=== PATIENT | female | born 1980 | race Caucasian/White ===

== ENCOUNTER 2016-11-01 15:08 | Emergency (ER) | payer OTHER ==
[2016-11-01 17:28] LABS: ABSOLUTE NEUTROPHIL COUNT 5.3 K/mm3 (1.8-7.7); BASO % 0.4 % (0.2-1.0); EOS # 0.3 (0.0-0.5); EOS % 3.6 % (0.9-2.9); HEMATOCRIT 40.7 % (37.0-47.0); HEMOGLOBIN 13.8 gm/l (12.0-16.0); IMM NEUT% 0.3 % (0-1); LYMPH # 1.4 (1.0-4.8); LYMPH % 18.1 % (15-45); MEAN CELL VOLUME 87.3 fl (81.0-99.0); MEAN CORPUSCULAR HEMOGLOBIN 29.6 pg (27.0-31.0); MEAN CORPUSCULAR HGB CONC 33.9 g/dl (33.0-37.0); MEAN PLATELET VOLUME 9.4 fl (7.4-10.4); MONO # 0.6 (0.0-0.8); MONO % 8.3 % (4-12); NEUT % 69.3 % (43-75); PLATELET COUNT 314 K/mm3 (130-400)
[2016-11-01] MEDS ORDERED: VANCOMYCIN HCL 1 G in SODIUM CHLORIDE 0.9% 230 ML IV ONE (17:30)
[2016-11-01] MEDS ORDERED: OXYCODONE HCL 5 MG TABLET ONE (18:08)
--- NOTE | 2016-11-15 12:23 | CONS ---
Stephania DA SILVA : 1980 [id number] EMERGENCY DEPARTMENT ORTHOPEDIC CONSULTATION DATE OF CONSULTATION: November 01, 2016 HISTORY OF PRESENT ILLNESS: This is a 35-year-old right-hand dominant female who came to the emergency department complaining of swelling of her right fifth finger that has been increasing and worsening for the past week. It has drained a couple of times with a little bit of purulence but is becoming more and more painful and the erythema is ascending up her arm. She does not have a known etiology for her injury at this site, but just notes that it is continuing to get worse and more painful. She was taken a couple of different antibiotics provided to her by her primary care doctor, but neither of these seems to have resolved the issue. She has not had previous injuries like this and has and has no other complaints at any of her other digits. PAST MEDICAL HISTORY: As reported in the emergency department notes. No relevant past medical history. PAST SURGICAL HISTORY: As reported in the emergency department notes. She has a previous section but no other relevant surgeries. SOCIAL HISTORY: She smokes a half a pack per day. REVIEW OF SYSTEMS: Is currently negative for constitutional, cardiovascular or respiratory complaints. She denies fevers, but just increasing pain at this finger. PHYSICAL EXAM: Patient is a well-developed, well-nourished female in no acute distress. She is awake and alert, and conversant throughout the encounter. HEENT: She is normocephalic and atraumatic. Extraocular movements are intact. NECK: Is soft and supple with full active range of motion. LUNGS: Are clear to auscultation bilaterally. HEART: Her heart has a regular rate and rhythm. EXTREMITIES: Her extremities are warm and well perfused with good sensation. FOCUSED MUSCULOSKELETAL EXAMINATION OF HER RIGHT HAND: Show significant erythema over the right small finger. There is 0/5 [place] signs. There is a clear evidence of a volar felon beginning at the margin of the nail and extending into the pad of the finger. The hand is form and well perfused with brisk capillary refill in all digits. There does appear to be some invasion of the subungual space as well. ASSESSMENT: This is a 35-year-old female with a right finger felon that has not been responsive to a course of antibiotics and nonoperative management. PLAN: The plan will be for an irrigation and debridement in the operating room. Risks, benefits and alternatives were discussed with the patient and she elected to proceed. Informed consent was obtained and documented in the chart. Job [id number] Cc: Odessa Blanco
--- NOTE | 2016-11-15 12:26 | PROCNOTE ---
Stephania DA SILVA : 1980 [id number] EMERGENCY DEPARTMENT ORTHOPEDIC PROCEDURE DATE OF PROCEDURE: November 01, 2016 PREPROCEDURAL DIAGNOSIS: Right small finger felon. POSTOPERATIVE DIAGNOSIS: Right small finger felon. PROCEDURE PERFORMED: Right finger irrigation and debridement. SURGEON: Malik Peña M.D. CHALK CUTTER: None. SPECIMENS: Material sent to the laboratory was cultures from the finger with some purulence on them. ESTIMATED BLOOD LOSS: 5 mL FLUID REPLACED: None. TOURNIQUET TIME: None. INDICATIONS: A 35-year-old female with a right small finger felon for additional details, see the consult note dictated by Dr. Peña. Risks, benefits and alternatives were discussed with the patient regarding management and she elected to proceed. DESCRIPTION OF THE PROCEDURE: The patient was identified and marked. Informed consent was reviewed. A final operative time out was performed and confirmed by the surgeon and the nurse who was assisting. A sterile field was laid out. The patient's hand was prepped and draped in a sterile fashion; 20 mL of 1% lidocaine without epinephrine were injected around the base of her small finger for a digital block. When this was in effect a #15 blade was used to make a longitudinal incision and the patient's small finger pad purulence was immediately encountered and was drained and swabs were collected for laboratory analysis. A snap was inserted into the pad and used to decompress all pockets to ensure that there was no residual areas of abscess. The wound was then copiously irrigated with sterile saline and a single stitch was placed into the skin to keep the skin edges apposed. A sterile dressing was applied. The drapes were removed and the patient was returned to her normal seated position on the stretcher. No complications were noted. POSTOPERATIVE DISPOSITION: The patient was discharged home with oral antibiotics. We will continue to follow her culture results and tailor, the antibiotics as required. Job [id number] Cc: Chester Francis
== END 2016-11-01 19:08 | disposition home or self-care (01) ==
LOC: ED 15:08
DX: L03.011 Cellulitis of right finger (principal)
CPT/HCPCS: 86141; 85025; 87070; 87205; 87186; 85651; 99283 ×2; 96365; A9270; J3370; J7050